=== PATIENT | female | born 1950 | race Caucasian/White ===

== ENCOUNTER → 2016-12-05 | Outpatient (CLI) | payer OTHER ==
--- NOTE | 2016-12-05 12:46 | MAMMOGRAPHY REPORT ---
UNILATERAL LEFT DIGITAL DIAGNOSTIC MAMMOGRAM: 12/05/2016 CLINICAL HISTORY: Callback from screening mammogram for left breast calcifications. TECHNIQUE: Spot magnification left CC and ML views were obtained. COMPARISON: Comparison is made to exams dated: 11/18/2016 mammogram, 09/07/2014 mammogram, 08/29/2013 mammogram, 07/21/2012 mammogram, 06/09/2011 mammogram, and 05/20/2010 mammogram - [facility]. BREAST COMPOSITION: There are scattered areas of fibroglandular density in the left breast. FINDINGS: Spot magnification views demonstrate 2-3 punctate benign-appearing calcifications in the l eft upper outer quadrant. In retrospect, the calcifications are stable compared to the August 2014 exam when accounting for differences in mammographic technique. Given the benign morphology and lo ng-term stability, the calcifications are considered benign. No suspicious cluster of micro-calcifi cations is noted. Other scattered coarse benign calcifications are seen within the left upper outer quadrant. IMPRESSION: ACR BI-RADS CATEGORY 2: BENIGN There is no mammographic evidence of malignancy. A 1 year screening mammogram is recommended. The p atient has been verbally notified of the results. Approximately 10% of breast cancers are not detected with mammography. A negative mammographic repor t should not delay biopsy if a clinically suggestive mass is present. Soo Blancas M.D. /:12/05/2016 10:05:54 Obstetrics Teacher: Gladys Bynum, [facility] letter sent: Normal 1/2 BI-RADS Code: ACR BI-RADS Category 2: Benign
== END | disposition home or self-care (01) ==
LOC: C.MAMM 09:35
PROVIDERS: ATTEND Family Medicine
DX: R92.8 Other abnormal and inconclusive findings on diagnostic imaging of breast (principal)

== ENCOUNTER 2019-10-14 05:04 | Inpatient (IN) ==
--- NOTE | 2019-09-12 15:16 | PAT Medication Instructions ---
Medication Instructions Date of Service September 12, 2019 Home Medications escitalopram oxalate [Lexapro] 10 mg PO QPM multivitamin 1 cap PO QPM Cbd 1 dose TOPICAL DAILY aspirin-caffeine [Anacin] 2 tab PO Q6H PRN cholecalciferol (vitamin D3) [Vitamin D3] 1,000 unit PO 3XWK cyanocobalamin (vitamin B-12) 1,000 mcg PO 3XWK ibuprofen 400 mg PO Q6H PRN magnesium oxide 400 mg PO QPM naproxen sodium [Aleve] 220 mg PO Q12H PRN omega 4-qua-acz-fish oil [Fish Oil] 2 cap PO 3XWK ASK your surgeon for instructions aspirin-caffeine [Anacin] 2 tab PO Q6H PRN ibuprofen 400 mg PO Q6H PRN naproxen sodium [Aleve] 220 mg PO Q12H PRN STOP taking 2 weeks before surgery (or as soon as possible if surgery is within 2 weeks) omega 2-orf-dnk-fish oil [Fish Oil] 2 cap PO 3XWK STOP taking 24 hours before surgery Cbd 1 dose TOPICAL DAILY DO NOT take the morning of surgery cholecalciferol (vitamin D3) [Vitamin D3] 1,000 unit PO 3XWK cyanocobalamin (vitamin B-12) 1,000 mcg PO 3XWK Take evening before surgery escitalopram oxalate [Lexapro] 10 mg PO QPM multivitamin 1 cap PO QPM magnesium oxide 400 mg PO QPM Other Notes If you have any questions please call us at [phone] or [phone] or [phone] or [phone]
--- NOTE | 2019-09-13 11:05 | Anesthesiology Consultation ---
Date of Service September 13, 2019 Assessment & Plan (1) Encounter for pre-operative examination: Chart Review Chart Review: Pending: Refer to Additional Notes / Consult section (pending preop testing (labs, EKG, CXR)) and Patient seen in Pre Admission Testing Teaching & Discussion Pre-Anesthesia Teaching/Discussion Notes: Instructed NPO after midnight before surgery,except medications with 15 cc of water. Medication instructions provid ed according to the PAT guidelines. History Surgery Operation Date: 10/14/19 10:40 Proposed Procedures p Right Total Hip Arthroplasty - Musa Sims MD Height/Weight Height: 5 ft 4 in Weight: 68.7 kg Allergies Allergy/AdvReac Type Severity Reaction Status Date / Time Penicillins Allergy Hives Verified 09/06/19 10:05 lactose AdvReac HX OF Verified 09/06/19 10:05 LACTOSE INTOLERANCE, GI UPSET/CRAMPING Medications Home Medications Medication Instructions Recorded Confirmed Last Taken escitalopram oxalate [Lexapro] 10 mg PO QPM 09/23/18 09/06/19 10/14/18 18:00 multivitamin 1 cap PO QPM 09/23/18 09/06/19 10/13/18 18:00 Cbd 1 dose TOPICAL DAILY 09/06/19 09/06/19 Unknown aspirin-caffeine [Anacin] 2 tab PO Q6H PRN 09/06/19 09/06/19 Unknown cholecalciferol (vitamin D3) 1,000 unit PO 3XWK 09/06/19 09/06/19 Unknown [Vitamin D3] cyanocobalamin (vitamin B-12) 1,000 mcg PO 3XWK 09/06/19 09/06/19 Unknown ibuprofen 400 mg PO Q6H PRN 09/06/19 09/06/19 Unknown magnesium oxide 400 mg PO QPM 09/06/19 09/06/19 Unknown naproxen sodium [Aleve] 220 mg PO Q12H PRN 09/06/19 09/06/19 Unknown omega 7-ldc-srq-fish oil [Fish Oil] 2 cap PO 3XWK 09/06/19 09/06/19 Unknown Past Medical History Medical History Anxiety Osteoarthritis Spinal stenosis at L4-L5 level Exercise / Class Metabolic Activity II 4-5 Yardwork/Stairs/Walk up hill Past Family History Family History Daughter Family history of reaction to anesthesia PONV Uncle Family hx of colon cancer Aunt Family hx of colon cancer Family/Other Family hx of colon cancer Past Surgical History Surgical History H/O exploratory laparotomy FOR ENDOMETRIOSIS H/O lumbar discectomy History of colonoscopy History of laminectomy History of laparotomy FOR ENDOMETRIOSIS History of total hip arthroplasty Left ISMAEL: 10/15/18: SAB x 1 at L3[facility]L4 at [facility] Past Anesthesia History No Hx of Anesthesia Complications and No Family Hx of Anesthesia Complications (except daughter PONV) History of PONV No Hx of PONV and Hx of Motion Sickness (mild) Social History Smoking Status: Never smoker Do You Dip or Chew Tobacco: No Hx Alcohol Use: Yes Alcohol type: beer, wine and hard liquor alcohol intake frequency: a few times a week Hx Substance Use: No substance use type: other Substance Use Type Other:: OTC CBD OIL TOPICALLY DAILY TO KNEE- ADVISED Review of Systems Patient denies chest pain, shortness of breath, dyspnea on exertion, cough, wheezing, palpitations. Physical Exam Vital Signs VITALS BP 133/83 P 55 TEMP 98.2 SP02 96%RA RESP 18 PHYSICAL Full neck and c-spine range of motion. Full TMJ range of motion. TMD 2.5 finger breaths Mallampati Score 3 Dentition: intact, several crowns sides/molars Lungs: clear throughout to auscultation Cardiac: regular rate and rhythm, no murmurs noted Spine: normal Carotid arteries: negative bruit Extremities: no edema
--- NOTE | 2019-09-13 12:00 | XRay Report ---
XR chest Pre-admission PA/Lat CLINICAL HISTORY: 68 years-old Female presenting with preoperative assessment. TECHNIQUE: PA and lateral views of the chest were obtained. COMPARISON: 09/29/2018. FINDINGS: Cardiomediastinal silhouette normal. Lungs and pleural spaces clear. Osseous structures normal. Upper abdomen normal. IMPRESSION: 1. No acute cardiopulmonary disease. Electronically signed by: Tico Perdomo M.D. 09/13/2019 11:59 AM
[2019-09-13 12:02] LABS: Basophils # (auto) 0.01 K/uL (0-0.2); Basophils % (auto) 0.1 %; Eosinophils # (auto) 0.26 K/uL (0-0.5); Eosinophils % (auto) 3.8 %; Hematocrit (blood only) 40.2 % (37-47); Hemoglobin 13.3 g/dL (12.0-16.0); Immature Granulocytes # (auto) 0.03 K/uL (0.00-0.02); Immature Granulocytes % (auto) 0.4 %; Lymphocytes # (auto) 1.49 K/uL (1.2-3.4); Lymphocytes % (auto) 21.8 %; Mean Corpuscular Hemoglobin 29.2 pg (25-34); Mean Corpuscular Hgb Conc 33.1 g/dL (32-36); Mean Corpuscular Volume 88.2 fL (80-100); Mean Platelet Volume 10.5 fL (7.4-10.4); Monocytes # (auto) 0.33 K/uL (0.11-0.59); Monocytes % (auto) 4.8 %; Neutrophils # (auto) 4.72 K/uL (1.4-6.5); Neutrophils % (auto) 69.1 %; Platelet Count 215 K/uL (130-400); RDW Coefficient of Variation 13.6 % (11.5-14.5); RDW Standard Deviation 43.7 fL (36.4-46.3); Red Blood Count 4.56 M/uL (4.2-5.4); White Blood Count 6.84 K/uL (4.8-10.8)
[2019-09-13 12:14] LABS: Prothrombin Time 10.2 Seconds (9.0-12.0)
--- NOTE | 2019-10-08 23:04 | History and Physical Report ---
DATE OF ADMISSION: 10/14/2019 CHIEF COMPLAINT: Right hip pain and discomfort. HISTORY OF PRESENT ILLNESS: The patient is a 68-year-old white female status post left hip replacement done just about a year ago. She has done extremely well from this side. She continues to be bothered by right hip pain and discomfort. She has groin pain and thigh pain. She has difficulty putting her shoes and socks on. The more she walks, the more it hurts. She limps all day long, but worse as the day goes on. She has nighttime pain. Denies any numbness. She is very happy with the left hip and would like to have her right hip replaced. PAST MEDICAL HISTORY: Significant for, 1. Elevated cholesterol. 2. Anxiety/depression. 3. Low back pain. PAST SURGICAL HISTORY: Include, 1. Left total hip replacement on 10/15/2018. 2. Herniated disk surgery in 1990. 3. Endometriosis. ALLERGIES: PENICILLIN WHICH CAUSES HIVES. No respiratory problems. CURRENT MEDICINES: Include, 1. Lexapro 10 mg a day. 2. Multivitamin. 3. Fish oil. 4. Magnesium. 5. CBD oil. SOCIAL HISTORY: A 68-year-old white female. She does not smoke. Has 6 drinks per week. FAMILY HISTORY: Noncontributory. REVIEW OF SYSTEMS: Negative for diabetes, neurologic problems, vascular problems, or bleeding disorders. Denies any chest pain or shortness of breath. No history of DVT or PE. No bleeding problems. PHYSICAL EXAMINATION: GENERAL: Shows a healthy, pleasant, middle-aged female. She looks to be in good health. HEENT: Benign. NECK: Supple, no lymphadenopathy. LUNGS: Clear to auscultation. HEART: Has a regular rate and rhythm. ABDOMEN: Soft, nontender, nondistended. EXTREMITIES: Grossly neurovascularly intact except as follows: Examination of the right hip reveals patient ambulates with a bit of a limp. Leg lengths clinically appear pretty equal. She does have stiffness and pain with hip motion. She can internally rotate to neutral, external rotation to 20 degrees. Negative straight leg raise. No knee effusion. She is neurologically intact. Examination of the left hip reveals a well-healed incision. She has pain with hip motion on this side. X-RAYS: X-rays of the right hip show advanced right hip DJD. She has got complete loss of superior joint space. She has got cystic changes to the femoral head and acetabulum. The left hip replacement looks to be in good position. ASSESSMENT: A 68-year-old white female 1 year out from a left hip replacement with advanced right hip degenerative joint disease. She has done well from the left side and would like to have her right hip replaced. PLAN: We will take her to the operating room and do a right total hip replacement. The risks and benefits of this procedure were explained to the patient including, but not limited to, DVT, PE, , infection, neurological injury, vascular injury, bleeding problem, pain, limited range of motion, stiffness, failure to relieve symptoms, incomplete relief of symptoms, need for further surgery in the future, fracture, leg length inequality, nerve palsy, dislocation, etc. The patient understands and desires to proceed. Informed consent was obtained. We will do the best we can to get her leg lengths equal. She is hoping to be discharged to the [facility] similar to the last time. I will see her back 2 weeks postop. She does report a rash with penicillin. We can still give her Ancef.
[2019-10-14] MEDS: SCOPOLAMINE 1.5 MG TDSY ONE (05:58)
[2019-10-14] MEDS ORDERED: METOCLOPRAMIDE HCL 10 MG TABLET PO SCH (06:00)
[2019-10-14] MEDS ORDERED: GABAPENTIN 300 MG CAP PO SCH (06:00)
[2019-10-14] MEDS ORDERED: FAMOTIDINE 20 MG TAB PO SCH (06:00)
[2019-10-14] MEDS ORDERED: LR 60ML/HR IV SCH (06:00)
[2019-10-14] MEDS ORDERED: LR 500ML BOLUS, THEN 15ML/HR IV SCH (06:00)
[2019-10-14] MEDS ORDERED: TRANEXAMIC ACID 1,000 MG **IV Pre-op IV SCH (06:00)
[2019-10-14] MEDS ORDERED: ACETAMINOPHEN 500 MG TAB PO SCH ×2 (06:00→14:00)
[2019-10-14] MEDS ORDERED: CEFAZOLIN 2000MG 2,000 MG/15 ML SYR IV SCH (06:00)
[2019-10-14] MEDS ORDERED: BUPIVACAINE 0.5 % 5 MG/1 ML PF 10ML VIAL ONE (06:20)
[2019-10-14] MEDS ORDERED: EPINEPHrine INJ 1 MG/ML AMP ONE (06:31)
[2019-10-14] MEDS ORDERED: BACITRACIN INJ 50,000 UNIT VIAL ONE (06:31)
[2019-10-14] MEDS ORDERED: BUPIVACAINE 0.5 % 5 MG/1 ML MPF 30ML VIAL ONE (06:32)
[2019-10-14] MEDS ORDERED: PROPOFOL IV EMULSION 10 MG/ML 20 ML VIAL IV ONE (06:38)
[2019-10-14] MEDS ORDERED: LIDOCAINE HCL 2% 2 ML VIAL/AMP(20MG/ML) INFIL ONE (06:38)
[2019-10-14] MEDS ORDERED: fentaNYL citrate 100 MCG/2 ML VIAL ONE (06:39)
[2019-10-14] MEDS ORDERED: MoRPHine SULFATE PF 1 MG/ML 10 ML AMP/VIAL ONE (06:39)
[2019-10-14] MEDS ORDERED: MIDAZOLAM HCL 1 MG/ML 2ML VIAL ONE (06:39)
--- NOTE | 2019-10-14 06:53 | History & Physical Bridge Note ---
Date of Service October 14, 2019 History & Physical Bridge Note I have examined the patient, reviewed the History & Physical and in the interval since the performance of the History & Physical I have noted the following changes of clinical significance: no changes noted
[2019-10-14] MEDS ORDERED: ePHEDrine sulfate 50 MG/ML AMP ONE (07:24)
[2019-10-14] MEDS ORDERED: ATROPINE SULFATE 0.1 MG/ML 10ML SYR IV PRN (07:55)
[2019-10-14] MEDS ORDERED: ePHEDrine sulfate 50 MG/ML AMP IV PRN ×2 (07:55→09:23)
[2019-10-14] MEDS ORDERED: PHENYLEPHRINE 100MCG/ML 5ML SYR ONE (08:11)
--- NOTE | 2019-10-14 08:26 | Post Operative Brief Note ---
PG Immediate Post Op with CF Date of Surgery October 14, 2019 Pre & Post Diagnosis Operation Date: 10/14/19 07:00 Pre-Op Diagnosis: Right Hip Degenerative Joint Disease Post-Op Diagnosis: Right Hip Degenerative Joint Disease I identified the patient and participated in the time-out.: Yes Procedure Operation Date: 10/14/19 07:00 Actual Procedures p Right Total Hip Arthroplasty, Calcar Fracture Repair with Dall-Miles(Right) - Musa Sims MD Surgeon Musa Sims MD Special Assets Officer Elisha, PAC Estimated Blood Loss 200 Findings Consistent with Post-Op Diagnosis Fluids 1300 cc Specimens Specimen Description: Permanent Specimen A: Right femoral head Drains Fox Catheter Anesthesia Type Spinal MAC Complications Calcar fracture treated with Dall-Miles cable. Disposition Accompanied Patient To Recovery: Yes Disposition: Recovery Room
[2019-10-14] MEDS ORDERED: ONDANSETRON INJ 2 MG/ML 2 ML VIAL ONE (08:31)
--- NOTE | 2019-10-14 08:53 | Operative Report ---
Post Operative Report Pre & Post Diagnosis Operation Date: 10/14/19 07:00 Pre-Op Diagnosis: Right Hip Degenerative Joint Disease Post-Op Diagnosis: Right Hip Degenerative Joint Disease I identified the patient and participated in the time-out.: Yes Procedure Operation Date: 10/14/19 07:00 Actual Procedures p Right Total Hip Arthroplasty, Calcar Fracture Repair with Dulle Wing(Right) - Musa Sims MD Surgeon Musa Sims MD Embedded Nurse Elisha, PAC Estimated Blood Loss 200 Findings Consistent with Post-Op Diagnosis Fluids 1300 cc Specimens Right Femoral Head sent for Pathology Anesthesia Type Spinal MAC Complications Calcar Fracture treated with Dall-Miles Cable Disposition Accompanied Patient To Recovery: Yes Disposition: Recovery Room Indications Patient is a 68-year-old female with a long history of bilateral hip pain and discomfort. She been through extensive conservative treatment the past. She underwent a left total hip replacement 1 year ago is done excellent from this. She continued to be limited by right hip pain. X-rays show advanced hip arthritis. She like to proceed with surgical treatment. Description of Procedure Operative implants consisted of: 1. Biomet G7 size 50 mm acetabular shell. 2. 6.5 cancellus acetabular screws 135 mm length and 120 mm in length. 3. Highly cross-link polyethylene liner with a 50 mm outer diameter and 32 mm diameter. 4. [place] hole eliminator. 5. DePuy Corail size 10 KLA femoral stem. 6. +1/32 mm ceramic articular ball. 7. Dall-Miles Cable X1. Patient was taken to the operating room identified and placed in the operating table supine position. Contact there is probably padded. IV antibiotic for by the anesthesia team. A spinal anesthetic had been implemented holding area. Fox catheter was placed in sterile fashion. The patient was then placed in the left lateral decubitus position. Axillary roll was placed. The Stulberg hip positioner was used for positioning. Right hip and leg were then prepped and draped in usual sterile fashion. A posterior lateral approach to the right hip was then performed to a curvilinear incision centered over the greater trochanter but Sharp passes cut through subcutaneous tissues down level the IT band gluteal fascia document gluteal fascia were incised longitudinally in line with skin incision. The underlying greater bursa was excised. The piriformis and external rotators were tagged and taken off the posterior aspect of the hip joint capsule. Great care was taken throughout the procedure to protect the sciatic nerve at all times. Posterior capsulotomy was then performed with a large flap for later repair. Hip was internally rotated and dislocated. A femoral neck osteotomy cut was made with Final Cut cut 10 mm above the lesser trochanter. The femur was retracted anteriorly. Attention down the acetabulum. The acetabular labrum was excised. The pulmonary fat was excised. Sequential reaming the acetabulum was then performed performed again with a 43 mm reamer and progressing up to 49. A Biomet 50 mm G7 acetabular shell was then placed in about 40 degrees lateral opening and 20 degrees of anteversion. It was fixed with two 6.5 cancellus acetabular screws. A large anterior osteophyte was removed. Trial liner was placed. Attention down the femur. Impaired the proximal femur was done with a Barak ITC cutter followed by canal finder. I then broached begin the size 8 and progressing up to 10. We got good fit but on p laced in the 10 broach there was a very small calcar crack crack which did not propagate distally. We did use a calcar reamer to smooth off the calcar. I then remove the implant in place today at 2.0 mm Dall-Miles cable around the femoral neck to prevent any fracture propagation. We then replaced the trial and trial of the hip. The +1 articular ball seem to re-create soft tissue tension and leg lengths equal. It was fully stable in full extension external rotation and flexion to 90 degrees internal rotation over [address] these implants. All trial implants were removed. An apex hole eliminator was placed but highly cross-link polyethylene liner was placed. A Yeimy Corail size 10 KLA femoral stem was impacted in position. There was no signs of further propagation of the fracture. +1/32 mm ceramic articular ball was placed. Hip was located once again found to be stable. Attention drawn to closing. New breath wound was irrigated cups amounts of pulsatile lavage solution. I did inject locally with 60 cc of 5% Marcaine with epinephrine. The posterior capsule and external rotators were then repaired through drill holes with #2 Tycron suture. The IT band gluteal fascia was then closed with #1 PDS suture running fashion with subtenons tissue then closed 2 layers the deep layer #2 Vicryl suture in a buried interrupted fashion followed by the subcutaneous tissues with 2-0 Dexon suture in a buried interrupted fashion. Skin was closed skin wallace. Leg was then cleaned dried and sterile dressing was Xeroform, 4 x 4's, ABD pads, and foam tape were applied. Patient then transferred to the recovery in stable condition. The patient tolerated the procedure well. The medial calcar fracture was treated with a Dall-Miles cable. I attest to the content of the Intraoperative Record and any orders documented therein. Any exceptions are noted below.
--- NOTE | 2019-10-14 09:02 | XRay Report ---
XR hip 1V RT w pelvis CLINICAL HISTORY: Postoperative evaluation. COMPARISON: Pelvis radiograph July 25, 2019. FINDINGS: Alignment of the total right hip arthroplasty is an anatomic. Cerclage wire is noted. Ther e are acetabular screws. Skin wallace are present. No fracture or unexpected radiopaque foreign body is noted. Left hip arthroplasty is unchanged in appearance. IMPRESSION: Expected findings following total right hip arthroplasty. Electronically signed by: Choco Koroma M.D. 10/14/2019 9:00 AM
[2019-10-14] MEDS ORDERED: NALOXONE HCL 0.08 MG in SYRINGE 1.8 ML IV PRN (09:23)
[2019-10-14] MEDS ORDERED: NALOXONE HCL 1 MG in SODIUM CHLORIDE 0.9% 1000ML 1,000 ML IV PRN (09:23)
[2019-10-14] MEDS ORDERED: NALBUPHINE HCL INJ 10 MG/ML AMP IV PRN (09:23)
[2019-10-14] MEDS ORDERED: DiphenhydrAMINE HCL 50 MG/ML VIAL IV PRN (09:23)
[2019-10-14] MEDS ORDERED: NALOXONE HCL 0.4 MG/1 ML VIAL/CARP IV PRN ×2 (09:23→09:34)
[2019-10-14] MEDS ORDERED: MoRPHine SULFATE PF 1 MG/ML 10 ML AMP/VIAL INT SPINAL ONE (09:23)
[2019-10-14] MEDS ORDERED: ONDANSETRON INJ 2 MG/ML 2 ML VIAL IV PRN (09:23)
[2019-10-14] MEDS ORDERED: PROMETHAZINE HCL 25 MG in SODIUM CHLORIDE 0.9% 50 ML IV PRN (09:23)
[2019-10-14] MEDS ORDERED: LACTATED RINGER'S 500 ML IV PRN (09:23)
--- NOTE | 2019-10-14 09:24 | Anesthesiology Progress Note ---
Date of Service October 14, 2019 Anesthesia Post Procedure Vital Signs Vital Signs: Temp Pulse Pulse Resp BP Pulse Ox 10/14/19 09:15 72 14 139/67 100 10/14/19 09:05 36.4 C L 71 15 145/67 H 100 10/14/19 08:55 75 19 142/68 H 99 10/14/19 08:45 73 10 L 133/62 100 10/14/19 08:35 77 13 140/62 100 10/14/19 08:26 36.7 C 84 10 L 134/64 100 10/14/19 05:48 37 C 58 L 16 178/89 H 96 Transfer of Care Handoff Completed per policy Notes Mental Status: alert / awake / arousable Patient Amnestic to Procedure: Yes Nausea / Vomiting: adequately controlled Pain: adequately controlled Airway Patency, RR, SpO2: stable & adequate BP & HR: stable & adequate Hydration State: stable & adequate Neuraxial Anesthesia: was administered and sensory block is resolving Anesthetic Complications: no major complications apparent
[2019-10-14] MEDS ORDERED: DC INTRASPINAL MORPHINE SCH (09:30)
[2019-10-14] MEDS ORDERED: SODIUM CHLORIDE 0.9% 1000ML 1,000 ML IV SCH (09:30)
[2019-10-14] MEDS ORDERED: NO NARCOTICS OR SEDATIVES SCH (09:30)
[2019-10-14] MEDS ORDERED: METOCLOPRAMIDE HCL INJ 5 MG/ML 2 ML VIAL IV PRN (09:34)
[2019-10-14] MEDS ORDERED: CBD TOP SCH (09:34)
[2019-10-14] MEDS ORDERED: MAGNESIUM HYDROXIDE SUSP 30 ML UDC PO PRN (09:34)
[2019-10-14] MEDS ORDERED: bisacodyL 10 MG SUPP PR PRN (09:34)
[2019-10-14] MEDS: DOCUSATE SODIUM 100 MG CAP PO SCH ×2 (11:33→20:16)
[2019-10-14] MEDS: SODIUM CHLORIDE 0.9% 1000ML 1,000 ML IV SCH ×2 (11:34→20:15)
[2019-10-14] MEDS: CYANOCOBALAMIN 500 MCG TABLET (VITAMIN B-12) PO SCH (11:36)
[2019-10-14] MEDS: MULTIVITAMIN TAB PO SCH (11:36)
[2019-10-14] MEDS: CEFAZOLIN 1000MG 1,000 MG/7.5 ML SYR IV SCH ×2 (14:03→22:50)
[2019-10-14] MEDS: ACETAMINOPHEN 500 MG TAB PO SCH ×2 (14:04→22:50)
[2019-10-14] MEDS ORDERED: TRANEXAMIC ACID 1,000 MG in 0.9 % SODIUM CHLORIDE 100 ML IV SCH (15:00)
--- NOTE | 2019-10-14 15:49 | Progress Note ---
DATE: 10/14/2019 SUBJECTIVE: 68-year-old white female postop from a right total hip replacement. She is doing well. Not having any pain yet. No chest pain, shortness of breath. Not feeling dizzy or lightheaded. OBJECTIVE: VITAL SIGNS: Temperature is 36.8. Vital signs stable. GENERAL: Shows a pleasant, middle-aged female. She is sitting up in bed and looks quite comfortable. LUNGS: Clear to auscultation. HEART: Has a regular rate and rhythm. ABDOMEN: Soft, nontender, nondistended. EXTREMITIES: Grossly neurovascularly intact except as follows: Examination of the right leg reveals the leg to be well aligned. Leg lengths are equal. Her thigh is soft and supple. Dressing is clean, dry and intact. She can dorsiflex and plantarflex her foot appropriately. X-RAYS: X-rays of the right hip from recovery room were reviewed. It shows right uncemented total hip arthroplasty. Components looked to be in good position. No signs of problems. There is a cable in place in good position. There are no signs of fracture. ASSESSMENT: A 68-year-old white female postop from a right uncemented total hip replacement complicated by a very small calcar fracture of the medial femoral neck cortex. This was treated with Dall-Miles cable and should be more than sufficient. We are going to alter her postoperative weightbearing status for the first couple weeks, but should not affect anything else. This is primarily just a precautionary measure. I did talk to the patient in depth with this on rounds this evening and also talked to the and daughter in the postoperative recovery room and informed them of the situation and answered all questions. PLAN: 1. DVT prophylaxis including thigh-high TEDs, SCDs, and aspirin twice a day. 2. PT/OT. We are going to keep her 50% weightbearing on this right leg for the first 2 weeks until we have a chance to x-ray it again. 3. Pain control, doing well with current pain regimen. 4. IV antibiotics x24 hours. 5. Disposition: She is planning to be discharged to the [facility]. She wants to do a rehab stay there like she did last time. We will get perinatal social worker working on that.
[2019-10-14] MEDS: FERROUS GLUCONATE 324 MG TAB PO SCH (17:36)
[2019-10-14] MEDS: ASCORBIC ACID 500 MG TAB PO SCH (17:37)
[2019-10-14] MEDS: ESCITALOPRAM OXALATE 10 MG TAB PO SCH (20:16)
[2019-10-14] MEDS: SENNA 8.6 MG TAB PO SCH (20:16)
[2019-10-14] MEDS: OMEGA-3 (PURIFIED FISH OIL) 1 GM CAP PO SCH (20:17)
[2019-10-14] MEDS: ASPIRIN 81 MG ECTAB PO SCH (20:17)
[2019-10-14] MEDS: MAGNESIUM OXIDE 400 MG TAB PO SCH (20:17)
[2019-10-14] MEDS: CHOLECALCIFEROL 1,000 UNITS TAB PO SCH (20:17)
[2019-10-14] MEDS ORDERED: NON-FORMULARY MEDICATION (Multivitamin 1 CAP) PO SCH (21:00)
[2019-10-15] MEDS ORDERED: ONDANSETRON INJ 2 MG/ML 2 ML VIAL IV PRN (03:23)
[2019-10-15] MEDS ORDERED: HYDROmorphone INJ 0.5 MG/0.5 ML SYR IV PRN (03:23)
[2019-10-15] MEDS: ACETAMINOPHEN 500 MG TAB PO SCH ×3 (05:09→21:00)
[2019-10-15] MEDS: KETOROLAC TROMETHAMINE 15 MG/ML VIAL IV SCH ×3 (05:09→17:50)
[2019-10-15 05:49] LABS: Basophils # (auto) 0.01 K/uL (0-0.2); Basophils % (auto) 0.1 %; Eosinophils # (auto) 0.01 K/uL (0-0.5); Eosinophils % (auto) 0.1 %; Hematocrit (blood only) 32.4 % (37-47); Hemoglobin 10.8 g/dL (12.0-16.0); Immature Granulocytes # (auto) 0.02 K/uL (0.00-0.02); Immature Granulocytes % (auto) 0.2 %; Lymphocytes % (auto) 6.1 %; Mean Corpuscular Hemoglobin 29.5 pg (25-34); Mean Corpuscular Hgb Conc 33.3 g/dL (32-36); Mean Corpuscular Volume 88.5 fL (80-100); Mean Platelet Volume 10.2 fL (7.4-10.4); Monocytes # (auto) 0.63 K/uL (0.11-0.59); Monocytes % (auto) 6.4 %; Neutrophils # (auto) 8.52 K/uL (1.4-6.5); Neutrophils % (auto) 87.1 %; Platelet Count 169 K/uL (130-400); RDW Coefficient of Variation 13.3 % (11.5-14.5); RDW Standard Deviation 43.3 fL (36.4-46.3); Red Blood Count 3.66 M/uL (4.2-5.4); White Blood Count 9.79 K/uL (4.8-10.8)
[2019-10-15 06:26] LABS: BUN Creatinine Ratio 14.2 (10-20); Calcium 8.2 mg/dl (8.5-10.1); Creatinine Clr Calc Pharmacy 76.5 ml/min; Est GFR (African American) 105.1; Est GFR (Non-African American) 90.7; Potassium 3.8 mmol/L (3.5-5.1)
[2019-10-15] MEDS: DOCUSATE SODIUM 100 MG CAP PO SCH ×2 (08:53→20:58)
[2019-10-15] MEDS: ASCORBIC ACID 500 MG TAB PO SCH ×2 (08:53→17:49)
[2019-10-15] MEDS: FERROUS GLUCONATE 324 MG TAB PO SCH ×2 (08:53→17:49)
[2019-10-15] MEDS: ASPIRIN 81 MG ECTAB PO SCH ×2 (08:54→20:59)
[2019-10-15] MEDS: MULTIVITAMIN TAB PO SCH (08:54)
--- NOTE | 2019-10-15 09:00 | Progress Note ---
DATE: 10/15/2019 SUBJECTIVE: A 68-year-old white female postop day #1 from right total hip replacement complicated by calcar fracture. She is doing pretty well. Not having much pain. She did have a little bit of a vasovagal episode while going to the bathroom earlier today. Feeling okay now. She denies any chest pain or shortness of breath. Not feeling dizzy or lightheaded. OBJECTIVE: VITAL SIGNS: Temperature 37.2. Vital signs stable. GENERAL: Shows a pleasant, middle-aged female. She is lying in bed, looks pretty comfortable. EXTREMITIES: Examination of the right hip and leg reveals the leg lengths to be equal. Dressing is clean, dry and intact. Thigh is soft and supple. She is neurologically intact. Hip is located. LABORATORY DATA: Hemoglobin 10.8. Hematocrit 30.4. Electrolytes are stable. ASSESSMENT: A 68-year-old white female postop day #1 from right total hip replacement complicated by calcar fracture treated with cabling. She is doing pretty well. She had this vasovagal episode, but I think that is possibly related to her spinal as well. I am sure that will pass as the day goes by. Her blood count is stable and good and her blood pressure is currently quite good and she is not tachycardic. No signs of major volume depletion. PLAN: 1. DVT prophylaxis including thigh-high TEDs, SCDs, and aspirin twice a day. 2. PT/OT. We are going to keep her partial weightbearing right leg for the first 2 weeks. 3. Pain control, doing okay with current pain regimen. 4. Anemia. Currently, asymptomatic. Will continue iron supplementation and encourage p.o. intake. No need for transfusion. 5. Disposition: She is planning to be discharged to [facility]. Apparently they have a bed available for her. We will hopefully get her there tomorrow if she is doing okay clinically.
[2019-10-15] MEDS: TRAMADOL HCL 50 MG TABLET PO PRN ×2 (16:44→20:58)
[2019-10-15] MEDS: SENNA 8.6 MG TAB PO SCH (20:59)
[2019-10-15] MEDS: ESCITALOPRAM OXALATE 10 MG TAB PO SCH (20:59)
[2019-10-15] MEDS: MAGNESIUM OXIDE 400 MG TAB PO SCH (20:59)
[2019-10-16] MEDS: KETOROLAC TROMETHAMINE 15 MG/ML VIAL IV SCH ×5 (00:29→23:24)
[2019-10-16] MEDS: ACETAMINOPHEN 500 MG TAB PO SCH ×3 (06:10→20:32)
[2019-10-16] MEDS: FERROUS GLUCONATE 324 MG TAB PO SCH ×2 (08:37→17:40)
[2019-10-16] MEDS: DOCUSATE SODIUM 100 MG CAP PO SCH ×2 (08:38→20:32)
[2019-10-16] MEDS: MULTIVITAMIN TAB PO SCH (08:38)
[2019-10-16] MEDS: ASCORBIC ACID 500 MG TAB PO SCH ×2 (08:38→17:40)
[2019-10-16] MEDS: ASPIRIN 81 MG ECTAB PO SCH ×2 (08:38→20:32)
--- NOTE | 2019-10-16 09:15 | Progress Note ---
DATE: 10/16/2019 SUBJECTIVE: A 68-year-old white female postop day 2 from a right total hip replacement complicated by calcar fracture. She is doing well. Pain is controlled. No chest pain or shortness of breath. Has been a little dizzy when she is getting up intermittently. OBJECTIVE: VITAL SIGNS: Temperature is 37.3. Vital signs stable. GENERAL: Shows a pleasant, middle-aged female. She is sitting in her bedside chair. Just came out of bathroom. She looks good. EXTREMITIES: Examination of the hip reveals incision to be clean, dry and intact. Thigh is soft and supple. Hip is located. She is neurologically intact. ASSESSMENT: A 68-year-old white female postop day 2 from right hip replacement complicated by calcar fracture, doing pretty well. Pain is controlled. Blood pressure looks good. Hemoglobin is stable. PLAN: 1. DVT prophylaxis including thigh-high TEDs, SCDs and aspirin twice a day. 2. PT/OT. Weight bear as tolerated. Right total hip protocol. We are going to keep her 50% weightbearing on the right leg for the first 2 weeks. 3. Pain control, doing well with current pain regimen. 4. Disposition. She is hoping to be discharged to the [facility]. We have to get insurance approval. We will work on that starting tomorrow morning.
[2019-10-16] MEDS: TRAMADOL HCL 50 MG TABLET PO PRN (14:37)
[2019-10-16] MEDS: SENNA 8.6 MG TAB PO SCH (20:32)
[2019-10-16] MEDS: ESCITALOPRAM OXALATE 10 MG TAB PO SCH (20:32)
[2019-10-16] MEDS: MAGNESIUM OXIDE 400 MG TAB PO SCH ×2 (20:32→20:33)
[2019-10-17] MEDS: TRAMADOL HCL 50 MG TABLET PO PRN ×2 (03:04→20:49)
[2019-10-17] MEDS: ACETAMINOPHEN 500 MG TAB PO SCH ×3 (06:13→20:46)
[2019-10-17] MEDS: FERROUS GLUCONATE 324 MG TAB PO SCH ×2 (07:16→18:05)
[2019-10-17] MEDS: ASCORBIC ACID 500 MG TAB PO SCH ×2 (07:16→18:05)
[2019-10-17] MEDS: CYANOCOBALAMIN 500 MCG TABLET (VITAMIN B-12) PO SCH (07:21)
[2019-10-17] MEDS: DOCUSATE SODIUM 100 MG CAP PO SCH ×2 (07:21→20:46)
[2019-10-17] MEDS: ASPIRIN 81 MG ECTAB PO SCH ×2 (07:21→20:46)
[2019-10-17] MEDS: MULTIVITAMIN TAB PO SCH (07:21)
--- NOTE | 2019-10-17 07:38 | Progress Note ---
DATE: 10/17/2019 SUBJECTIVE: A 68-year-old white female postop day 3 from a right total hip replacement. She is doing pretty well. Still a little difficulty lifting her leg which is normal. Pain has been reasonably well controlled. No chest pain or shortness of breath. Not feeling dizzy or lightheaded. OBJECTIVE: VITAL SIGNS: Temperature 37.1. Vital signs stable. GENERAL: Shows a pleasant, middle-aged female. She is lying in bed, looks pretty comfortable. EXTREMITIES: Examination of the right hip reveals the dressing to be clean, dry and intact. Incision is clean, dry and intact. No drainage. Leg lengths were equal. Hip is located. She is neurologically intact. ASSESSMENT: A 68-year-old white female postop day 3 from a right total hip replacement complicated by calcar fracture. She is doing well. Pain is controlled. Hip is located. She is neurologically intact. PLAN: 1. DVT prophylaxis including thigh-high TEDs, SCDs, and aspirin twice a day. 2. PT/OT. We are going to keep her 50% weightbearing on this right leg for the next 2 weeks. 3. Pain control, doing well with current pain regimen. 4. Disposition: She is hoping to be discharged to the [facility] for a brief rehab stay. We will look into that today.
[2019-10-17] MEDS: MAGNESIUM OXIDE 400 MG TAB PO SCH (20:45)
[2019-10-17] MEDS: ESCITALOPRAM OXALATE 10 MG TAB PO SCH (20:45)
[2019-10-17] MEDS: OMEGA-3 (PURIFIED FISH OIL) 1 GM CAP PO SCH (20:45)
[2019-10-17] MEDS: CHOLECALCIFEROL 1,000 UNITS TAB PO SCH (20:45)
[2019-10-17] MEDS: SENNA 8.6 MG TAB PO SCH (20:46)
[2019-10-18] MEDS: ACETAMINOPHEN 500 MG TAB PO SCH (05:49)
[2019-10-18] MEDS: FERROUS GLUCONATE 324 MG TAB PO SCH (08:33)
[2019-10-18] MEDS: DOCUSATE SODIUM 100 MG CAP PO SCH (08:33)
[2019-10-18] MEDS: ASCORBIC ACID 500 MG TAB PO SCH (08:33)
[2019-10-18] MEDS: MULTIVITAMIN TAB PO SCH ×2 (08:34→08:38)
[2019-10-18] MEDS: ASPIRIN 81 MG ECTAB PO SCH (08:34)
[2019-10-18] MEDS: TRAMADOL HCL 50 MG TABLET PO PRN (08:34)
--- NOTE | 2019-10-18 11:17 | Progress Note ---
DATE: 10/18/2019 SUBJECTIVE: A 68-year-old white female postop day 3 from a right total hip replacement. She is doing pretty well. Pain is getting better daily. No chest pain or shortness of breath. Not feeling dizzy or lightheaded. OBJECTIVE: VITAL SIGNS: Temperature is 36.9. Vital signs stable. GENERAL: Shows a pleasant, middle-aged female. She is lying in bed and talking on the phone and looks comfortable. EXTREMITIES: Examination of the right hip reveals the leg lengths to be equal. Dressing is clean, dry and intact. Thigh is soft and supple. Very mild swelling. No drainage. She is neurologically intact. ASSESSMENT: A 68-year-old white female postoperative day 4 from a right total hip replacement complicated by calcar fracture, treated with a cerclage cable. She is doing well. Pain is controlled. We are just waiting for approval for alf facility transfer. PLAN: 1. DVT prophylaxis including thigh-high TEDs, SCDs, and aspirin twice a day. 2. PT/OT. She can be partial weightbearing in the right leg from the next 2 weeks. 50% weightbearing. 3. Pain control, doing well with current pain regimen. 4. Disposition: Plan to discharge to [facility] hopefully later today if accepted and approved.
--- NOTE | 2019-10-25 15:25 | Discharge Summary ---
NOTICE TO RECEIVING LIBERTARIAN/AGENCY This information is strictly Confidential and protected under [place] law. [place] law prohibits you from making any further disclosure of this information unless further disclosure is expressly permitted by the written consent of the person to whom it pertains or is authorized by law. A general authorization for the release of medical or other information is not sufficient for this purpose. Hospital accepts no responsibility if the information is made available to any other person, INCLUDING THE PATIENT. ADMITTING PHYSICIAN AND SURGEON: Dr. Musa Sims ADMITTING DIAGNOSIS: Right hip degenerative joint disease. SURGERY PERFORMED: Right total hip arthroplasty with calcar fracture treated with Dall-Miles cable. SECONDARY DIAGNOSES: Elevated cholesterol, anxiety, depression, low back pain. CONSULTS: None obtained. HISTORY AND PHYSICAL EXAMINATION: Well documented in the patient's chart. HOSPITAL COURSE: The patient was admitted on 10/14/2019 underwent total hip arthroplasty, tolerated the procedure well. She did have a calcar fracture intraoperatively, which was treated with Dall-Miles cable. She was transferred to the PACU postoperatively and later to the orthopedic floor for further care. She was given Ancef for antibiotic prophylaxis, QUIQUE stockings, SCDs and aspirin for DVT prophylaxis. Hemoglobin, hematocrit and vital signs were monitored during her hospital stay and remained stable. She had some postoperative anemia, did not require any blood transfusions. She was given an iron supplement. There were no complications. By postoperative day 4, she was tolerating a lactose intolerant diet. She was participating in physical therapy. Pain was controlled with oral pain medicine. On postop day 4 she was discharged to [facility] facility. She was given printed discharge instructions as well as new prescriptions for extra strength Tylenol, aspirin and tramadol. Continue her home medications, continue physical therapy. She is 50% partial weightbearing to the right lower extremity, continue QUIQUE stockings, total hip precautions. Follow up approximately 2 weeks postop or sooner if there are any problems or concerns.
== END 2019-10-18 13:05 | DRG 470 ==
LOC: ASU 05:04 → 3E 08:31